=== PATIENT | male | born 1955 ===

== ENCOUNTER 2022-09-18 11:45 | Inpatient (IN) | payer OTHER ==
[~2022-09-18 11:45] MED LIST: AVAPRO150 MG PO; CARDIZEM CD180 M1 PO; CLONAZEPAM0.5 MG; FLAGYL PO; FLAGYL375 MG; HYDROCHLOROTH12.5 MG PO; METRONIDAZOLE500 MG PO; PANTOPRAZOLE SO40 MG; SYNTHROID125 MCG PO; TRAMADOL HCL50 MG PO; TRIPLE ANTIBIOT15 GM TP; XARELTO20 MG PO
[2022-09-27] MEDS ORDERED: TOPROL XL25 M1 PO (11:41)
[2022-09-27] MEDS ORDERED: CLONAZEPAM0.5 MG PO (11:41)
== END 2022-09-27 12:00 | disposition home or self-care (01) | DRG 330 ==
LOC: SURG 09-24 05:44 → O/R 09-24 05:44 → SURG 09-24 11:45
PROVIDERS: ADMIT Colon & Rectal Surgery; ATTEND Colon & Rectal Surgery
PROC: 0DBP4ZZ Excision of Rectum, Percutaneous Endoscopic Approach (ICD-10-PCS; 2022-09-24)
PROC: 0DJD8ZZ Inspection of Lower Intestinal Tract, Via Natural or Artificial Opening Endoscopic (ICD-10-PCS; 2022-09-24)
PROC: 4A12X4Z Monitoring of Cardiac Electrical Activity, External Approach (ICD-10-PCS; 2022-09-24)
PROC: 0DTN4ZZ Resection of Sigmoid Colon, Percutaneous Endoscopic Approach (ICD-10-PCS; principal; 2022-09-24 21:30)
DX: K57.32 Diverticulitis of large intestine without perforation or abscess without bleeding (principal); K92.1 Melena; I48.0 Paroxysmal atrial fibrillation; Z20.822 Contact with and (suspected) exposure to COVID-19; E03.9 Hypothyroidism, unspecified; I10 Essential (primary) hypertension